=== PATIENT | female | born 1955 | race Caucasian/White ===

== ENCOUNTER 2022-09-03 08:02 | Day surgery (SDC) | payer OTHER, BC ==
--- NOTE | 2022-08-30 12:08 | RAD REPORT ---
EXAM DESCRIPTION: RAD - Chest Pa And Lat (2 Views) - 08/30/2022 12:02 pm CLINICAL HISTORY: pre op for surgery, hypertension COMPARISON: No comparisons FINDINGS: Lines: None. Lungs: No evidence of edema or pneumonia. Pleural: No significant pleural effusions or pneumothorax. Cardiac: The heart size is within normal limits. Mediastinum: Within normal limits. Bones: No acute fractures. Other: None IMPRESSION: No acute cardiopulmonary disease.
[2022-08-30 12:18] LABS: Absolute Lymphocytes (CBC) 2.1 K/uL (0.7-4.9); Hematocrit 36.4 % (36.0-45.0); Lymphocytes % 33.9 % (15.3-44.8); MCV 85.6 fL (80-100); MPV 6.7 fL (7.6-11.3); RBC Red Blood Cell Count 4.26 M/uL (3.86-4.86)
[2022-08-30 12:28] LABS: Potassium 4.1 mEq/L (3.5-5.1)
--- NOTE | 2022-09-02 11:47 | EKG ---
Test Date: 2022-08-30 Test Time: 11:42:36 Washer Carcass: FIDELINA MEASUREMENT RESULTS: Intervals: Rate: 71 IA: 152 QRSD: 90 QT: 390 QTc: 423 [place]: P: 65 IA: 152 QRS: 12 T: 53 INTERPRETIVE STATEMENTS: Normal sinus rhythm Normal ECG No previous ECG available for comparison Electronically Signed On 09-02-22 11:41:56 CDT by Sha Mcintyre
[2022-09-03] MEDS ORDERED: CEFAZOLIN SODIUM 1 GM/VIAL ONE (08:26)
[2022-09-03] MEDS ORDERED: propofoL 200 MG/20 ML VIAL IV ONE (08:30)
[2022-09-03] MEDS ORDERED: MIDAZOLAM HCL 2 MG/2 ML INJ ONE (08:30)
[2022-09-03] MEDS ORDERED: FENTANYL CITR 100 MCG/2 ML ONE (08:31)
[2022-09-03] MEDS ORDERED: ONDANSETRON 4 MG/2 ML VIAL ONE (08:32)
[2022-09-03] MEDS ORDERED: LIDOCAINE 2% MPF 5 ML VIAL ONE (08:32)
[2022-09-03] MEDS: NA CHLORIDE 0.9% 1,000 ML ONE (08:35)
[2022-09-03] MEDS ORDERED: CLINDAMYCIN 600MG/D5W 50 ML IV ONE (09:06)
[2022-09-03] MEDS: HYDROMORPHONE HCL 1 MG/ML INJ ONE ×2 (10:13→10:18)
[2022-09-03 11:19] VITALS: BP 110/62; TEMP 97.4; O2SAT 99
--- NOTE | 2022-09-03 12:53 | OP ---
Surgeon: Rahul Mckinnon MD Preoperative Diagnosis: Puncture wound, left middle finger, proximal interphalangeal joint. Postoperative Diagnosis: Puncture wound, left middle finger, proximal interphalangeal joint with foreign body. Procedure Performed: Arthrotomy with removal of foreign body, and splint. Anesthesia: General. Description Of Procedure: After satisfactory induction of general anesthesia, left arm was prepped w ith Betadine scrub, Betadine paint, dry sterile drapes applied in usual manner. Arm was elevated and exsanguinated with an Esmarch. Tourniquet was inflated to 250 mmHg. Hand was placed on the roll lo ck table. Curvilinear incision was made over dorsum of the PIP of left middle finger. Dissection pr oceeded down to the extensor mechanism. Distal and slightly ulnar, there was some discoloration of t he tendon and this area was then excised, sent to pathology. Then the joint was opened with an incis ion in mid extensor tendon and retracted was identified and sent to pathology. The wound was jet lavaged and irrigated with 3 L of dilute Betadine solution. Tourniquet was released. Electr ocautery used for hemostasis. Extensor tendon closed with 5-0 Prolene buried mattress. The skin reggie sed with 4-0 Prolene vertical mattress simple sutures. Dressed with Xeroform, 2-inch Ninfa, and spli nt holding the PIP and DIP in extension. Patient tolerated the procedure well and returned to recovery room. CORTES/TIFFANY Voice ID: [id number] Report ID: [id number]
--- NOTE | 2022-09-03 16:15 | HP ---
Date of Admission: 09/03/2022 History Of Present Illness: This is a 66-year-old white female who is right-hand dominant, punctured left middle finger PIP joint on 05/04/2022, was swollen, treated with stand the pain in t he joint anymore and wants to have it resolved. History of high blood pressure. Had surgeries to to nsils. Does not smoke. Does not drink. She is on Assessment: Infected left middle finger proximal interphalangeal joint. Plan: Debridement, exploration. CORTES/MODL Voice ID: [id number]
== END 2022-09-03 11:04 | disposition home or self-care (01) ==
LOC: OR 08:02
PROVIDERS: ATTEND Specialist
PROC: 0RCX0ZZ Extirpation of Matter from Left Finger Phalangeal Joint, Open Approach (ICD-10-PCS; principal; 2022-09-03 09:00)
DX: S61.243A Puncture wound with foreign body of left middle finger without damage to nail, initial encounter (principal); I10 Essential (primary) hypertension; Z88.0 Allergy status to penicillin
CPT/HCPCS: 93005; 87070; 85025; 80048; 36415; 87205; 82947 ×2; 88304; 87075; 71046; 26080; J2704; J2001; J2250; J3010; J1170; J2405; J7030; J0690